=== PATIENT | female | born 1965 | race Caucasian/White ===

== ENCOUNTER 2018-02-18 20:37 | Emergency (ER) | payer BC ==
[~2018-02-18] VITALS: Ht 170.2 cm; Wt 107.6 kg
[~2018-02-18 20:37] MED LIST: LEVO137T2 PO; METO25TA3 PO
[2018-02-18] MEDS ORDERED: IOHEXOL 350 MG/ML 10 ML VIAL (for RAD DIAG) IVCONTRAST ONE (20:38)
[2018-02-18 20:55] VITALS: BP 154/82; PULSE 80; RESP 18; TEMP 97.7; O2SAT 97
[2018-02-18] MEDS ORDERED: METR-1 PO (21:07)
[2018-02-18] MEDS ORDERED: CIPR-9 PO (21:07)
[2018-02-18] MEDS ORDERED: SODIUM CHLOR 0.9% 1000 ML INJ 1,000 ML IV SCH (21:08)
[2018-02-18] MEDS ORDERED: diphenhydrAMINE HCL 50 MG/ML VIAL IV PUSH ONE (21:15)
[2018-02-18] MEDS ORDERED: SODIUM CHLORIDE 0.9% FLUSH 10 ML FLUSH IV FLUSH PRN (21:15)
[2018-02-18] MEDS ORDERED: PROCHLORPERAZINE INJ 10 MG/2 ML VIAL IV PUSH ONE (21:15)
[2018-02-18] MEDS ORDERED: MORPHINE SULFATE 4 MG/ML INJ IV PUSH ONE (21:15)
[2018-02-18 21:45] LABS: AUTOMATED NEUTROPHIL # 4.4 TH/MM3 (1.8-7.7); BASOPHIL # 0.1 TH/MM3 (0-0.2); BASOPHIL % 1.2 % (0.0-2.0); EOSINOPHIL % 0.5 % (0.0-4.0); HEMATOCRIT 41.3 % (35.0-46.0); HEMOGLOBIN 13.9 GM/DL (11.6-15.3); LYMPH % 20.9 % (9.0-44.0); LYMPHOCYTE # 1.3 TH/MM3 (1.0-4.8); MEAN CELL VOLUME 90.5 FL (80.0-100.0); MEAN CORPUSCULAR HEMOGLOBIN 30.4 PG (27.0-34.0); MEAN CORPUSCULAR HGB CONC 33.5 % (32.0-36.0); MEAN PLATELET VOLUME 7.3 FL (7.0-11.0); MONO % 8.8 % (0.0-8.0); MONOCYTE # 0.6 TH/MM3 (0-0.9); NEUT % 68.6 % (16.0-70.0); PLATELET COUNT 358 TH/MM3 (150-450); RED BLOOD COUNT 4.57 MIL/MM3 (4.00-5.30); RED CELL DISTRIBUTION WIDTH 12.9 % (11.6-17.2); WHITE BLOOD COUNT 6.4 TH/MM3 (4.0-11.0)
[2018-02-18 21:50] VITALS: BP 164/90; PULSE 88; RESP 15; O2SAT 97
[2018-02-18 21:51] LABS: CHLORIDE 102 MEQ/L (98-107); SODIUM (NA) 137 MEQ/L (136-145)
[2018-02-18 21:55] LABS: ALBUMIN 3.9 GM/DL (3.4-5.0); BICARBONATE 28.1 MEQ/L (21.0-32.0); BLOOD UREA NITROGEN 8 MG/DL (7-18); GLUCOSE,RANDOM 111 MG/DL (74-106)
--- NOTE | 2018-02-18 21:56 | PD ---
HPI . Abdominal pain Chief Complaint: Abdominal Pain Time Seen by Provider: 21:07 Travel History International Travel<30 days: No Contact w/Intl Traveler<30days: No Traveled to known affect area: No History of Present Illness HPI Patient presents with a chief complaint of abdominal pain. Onset was approximately 5 days ago. It started in the left lower quadrant and has moved to the epigastrium. She describes the pain as nausea. It is rated 10/10. She has not noted any exacerbating or relieving factors. She also reports a poor appetite and headache. She states that she started a clear liquid and bland diet at the onset of her symptoms. However, the symptoms persisted. She subsequently contacted her primary care provider yesterday who started her on Cipro and Flagyl for presumed diverticulitis. She states that her nausea has gotten worse with the antibiotics. She denies fever. PFSH Past Medical History Diminished Hearing: No Hypertension: Yes Thyroid Disease: Yes Tetanus Vaccination: Unknown Influenza Vaccination: No ?: Not Menopausal: Yes : 3 Para: 3 Past Surgical History Cholecystectomy: Yes Social History Alcohol Use: Yes (occas) Tobacco Use: No Substance Use: No Allergies-Medications (Allergen,Severity, Reaction): Coded Allergies: No Known Allergies (Verified Allergy, Unknown, 02/18/18) Reported Meds & Prescriptions Reported Meds & Active Scripts Active Metoprolol Tartrate 25 Mg Tab 25 Mg PO BID Levothyroxine (Levothyroxine Sodium) 137 Mcg Tab 137 Mcg PO DAILY Reported Flagyl (Metronidazole) 500 Mg Tab 500 Mg PO BID Cipro (Ciprofloxacin HCl) 500 Mg Tab 500 Mg PO BID Review of Systems Except as stated in HPI: all other systems reviewed are Neg General / Constitutional: No: Fever, Chills Gastrointestinal: Positive: Nausea, Abdominal Pain, Loss of Appetite, No: Vomiting, Diarrhea Genitourinary: No: Urgency, Frequency, Dysuria Physical Exam Narrative GENERAL: Awake and alert. SKIN: warm/dry. HEAD: Normocephalic. Atraumatic. EYES: Pupils equal and round. Extraocular movements are intact. ENT: Mucous membranes pink and moist. NECK: Supple. Full range of motion without pain.. CARDIOVASCULAR: Regular rate and rhythm. Heart sounds normal. RESPIRATORY: No accessory muscle use. Clear to auscultation. Breath sounds equal bilaterally. GASTROINTESTINAL: Abdomen soft. Mild upper abdominal tenderness. Bowel sounds diminished. Nondistended. MUSCULOSKELETAL: No obvious deformities. Normal muscle tone. NEUROLOGICAL: Awake and alert. No obvious cranial nerve deficits. Motor grossly within normal limits. Normal speech. PSYCHIATRIC: Appropriate mood and affect; insight and judgment normal. Data Data Last Documented VS Vital Signs Date Time Temp Pulse Resp B/P (MAP) Pulse Ox O2 Delivery O2 Flow Rate FiO2 02/18/18 22:53 74 15 126/78 (94) 96 Room Air 02/18/18 20:55 97.7 Orders Orders Complete Blood Count With Diff (02/18/18 21:08) Comprehensive Metabolic Panel (02/18/18 21:08) Lipase (02/18/18 21:08) Urinalysis - C+S If Indicated (02/18/18 21:08) Ct Abd/Pel W Iv Contrast(Rout) (02/18/18 21:08) Iv Access Insert/Monitor (02/18/18 21:08) Morphine Inj (Morphine Inj) (02/18/18 21:15) Sodium Chlor 0.9% 1000 Ml Inj (Ns 1000 M (02/18/18 21:08) Sodium Chloride 0.9% Flush (Ns Flush) (02/18/18 21:15) Diphenhydramine Inj (Benadryl Inj) (02/18/18 21:15) Prochlorperazine Inj (Compazine Inj) (02/18/18 21:15) Ed Urine Pregnancytest Poc (02/18/18 21:08) Iohexol 350 Inj (Omnipaque 350 Inj) (02/18/18 20:38) Labs Laboratory Tests Test 02/18/18 21:41 02/18/18 23:13 White Blood Count 6.4 TH/MM3 Red Blood Count 4.57 MIL/MM3 Hemoglobin 13.9 GM/DL Hematocrit 41.3 % Mean Corpuscular Volume 90.5 FL Mean Corpuscular Hemoglobin 30.4 PG Mean Corpuscular Hemoglobin Concent 33.5 % Red Cell Distribution Width 12.9 % Platelet Count 358 TH/MM3 Mean Platelet Volume 7.3 FL Neutrophils (%) (Auto) 68.6 % Lymphocytes (%) (Auto) 20.9 % Monocytes (%) (Auto) 8.8 % Eosinophils (%) (Auto) 0.5 % Basophils (%) (Auto) 1.2 % Neutrophils # (Auto) 4.4 TH/MM3 Lymphocytes # (Auto) 1.3 TH/MM3 Monocytes # (Auto) 0.6 TH/MM3 Eosinophils # (Auto) 0.0 TH/MM3 Basophils # (Auto) 0.1 TH/MM3 CBC Comment DIFF FINAL Differential Comment Blood Urea Nitrogen 8 MG/DL Creatinine 0.81 MG/DL Random Glucose 111 MG/DL Total Protein 7.6 GM/DL Albumin 3.9 GM/DL Calcium Level 9.0 MG/DL Alkaline Phosphatase 73 U/L Aspartate Amino Transf (AST/SGOT) 28 U/L Alanine Aminotransferase (ALT/SGPT) 31 U/L Total Bilirubin 0.4 MG/DL Sodium Level 137 MEQ/L Potassium Level 3.9 MEQ/L Chloride Level 102 MEQ/L Carbon Dioxide Level 28.1 MEQ/L Anion Gap 7 MEQ/L Estimat Glomerular Filtration Rate 74 ML/MIN Lipase 81 U/L Urine Color YELLOW Urine Turbidity CLEAR Urine pH 6.5 Urine Specific [place] LESS/EQUAL 1.005 Urine Protein NEG mg/dL Urine Glucose (UA) NEG mg/dL Urine Ketones NEG mg/dL Urine Occult Blood NEG Urine Nitrite NEG Urine Bilirubin NEG Urine Urobilinogen 0.2 MG/DL Urine Leukocyte Esterase TRACE Urine RBC 0-2 /hpf Urine WBC 3-5 /hpf Urine Squamous Epithelial Cells 0-5 /hpf Urine Bacteria NONE /hpf Microscopic Urinalysis Comment CULT NOT INDICATED MDM Medical Decision Making Medical Screen Exam Complete: Yes Emergency Medical Condition: Yes Differential Diagnosis Differential diagnosis of abdominal pain includes but is not limited to gastritis, pancreatitis, hepatitis, gastroenteritis, constipation, urinary retention, peptic ulcer disease, diverticulitis or appendicitis Narrative Course This patient presents with a chief complaint of abdominal pain. She has had it for about 5 days now. It started in the left lower quadrant but has moved to the epigastrium. She has been on antibiotics for presumed diverticulitis for 24 hours. The antibiotics have caused increased nausea. Abdominal pain workup is in process including CT of the abdomen and pelvis. In the meantime, she will be treated with IV fluids, IV Compazine, IV Benadryl and IV morphine. CBC & BMP Diagram 02/18/18 21:41 Total Protein 7.6, Albumin 3.9, Calcium Level 9.0, Alkaline Phosphatase 73, Aspartate Amino Transf (AST/SGOT) 28, Alanine Aminotransferase (ALT/SGPT) 31, Total Bilirubin 0.4, Lipase 81 UA is negative. Last Impressions Abdomen/Pelvis CT 02/18/182107 Signed Impressions: CONCLUSION: 1. No acute findings. Colonic diverticula without evidence for diverticulitis. No obstruction, free fluid or free air. Small hiatal hernia. Previous cholecys tectomy. I have not found an etiology for this patient's abdominal pain. Diagnosis Primary Impression: Abdominal pain, left lower quadrant Patient Instructions: Abdominal Pain (ED), General Instructions, Narcotic given in the ED Med/Other Pt SpecificInfo: Prescription(s) given Scripts Dicyclomine (Bentyl) 10 Mg Cap 10 MG PO QID for Bowel Management, #15 CAP 0 Refills Prov: Nano Cardozo MD 02/18/18 Ondansetron (Zofran) 4 Mg Tab 4 MG PO Q6HR Y for NAUSEA OR VOMITING, #12 TAB 0 Refills Prov: Nano Cardozo MD 02/18/18 Disposition: 01 DISCHARGE HOME Condition: Stable Nano Cardozo MD Feb 18, 2018 21:56
[2018-02-18 21:58] LABS: ALT (GPT) 31 U/L (10-53); AST (GOT) 28 U/L (15-37); CREATININE 0.81 MG/DL (0.50-1.00); GLOMERULAR FILTRATION RATE 74 ML/MIN (>89)
[2018-02-18 22:00] LABS: TOTAL BILIRUBIN ADULT 0.4 MG/DL (0.2-1.0); TOTAL PROTEIN 7.6 GM/DL (6.4-8.2)
[2018-02-18 22:01] LABS: ALKALINE PHOSPHATASE 73 U/L (45-117)
[2018-02-18 22:53] VITALS: BP 126/78; PULSE 74; RESP 15; O2SAT 96
--- NOTE | 2018-02-18 22:54 | RADRPT ---
EXAM DATE: 02/18/2018 10:46 PM EDT AGE/SEX: 52 years / Female INDICATIONS: Diffuse abdominal pain for 5 days. CLINICAL DATA: This is the patient's initial encounter. Patient reports that signs and symptoms have been present for 4 - 6 days and indicates a pain score of 10/10. MEDICAL/SURGICAL HISTORY: Hypertension. Thyroid disease. Cholecystectomy. ORAL CONTRAST: No oral contrast ingested. RADIATION DOSE: 19.22 CTDI (mGy) COMPARISON: No prior exams available for comparison. TECHNIQUE: Multiple contiguous axial images were obtained through the abdomen and pelvis following b olus infusion of 90 ml Omnipaque 350 (iohexol) nonionic water-soluble contrast as a single exam dos e. No oral contrast ingested. Using automated exposure control and adjustment of the mA and/or kV ac cording to patient size, radiation dose was kept as low as reasonably achievable to obtain optimal di agnostic quality images. DICOM format image data is available electronically for review and comparis on. FINDINGS: Lung bases are clear. No acute findings in the liver, spleen, adrenals, kidneys or pancreas. Previous cholecystectomy. No pelvic masses or free fluid. There is colonic diverticulosis without evidence for diverticulitis. Small hiatal hernia. CONCLUSION: 1. No acute findings. Colonic diverticula without evidence for diverticulitis. No obstruction, free fluid or free air. Small hiatal hernia. Previous cholecystectomy. Electronically signed by: Joce Ladd MD 02/18/2018 10:53 PM EDT
[2018-02-18 23:16] LABS: BILIRUBIN, URINE NEG (NEG); BLOOD, URINE NEG (NEG); GLUCOSE,URINE NEG (NEG); KETONE, URINE NEG (NEG); NITRITE,URINE NEG (NEG); PH, URINE 6.5 (5.0-8.5); URINE COLOR YELLOW (YELLW/STRAW); URINE LEUKOCYTE ESTERASE TRACE (NEG)
[2018-02-18 23:20] LABS: RBC, URINE 0-2 /hpf (0-3); SQUAMOUS EPITHELIAL CELL URINE 0-5 /hpf (0-5)
[2018-02-18] MEDS ORDERED: DICY10 PO (23:39)
[2018-02-18] MEDS ORDERED: ZOFR4TAB PO (23:39)
[2018-02-18 23:52] VITALS: BP 130/78
== END 2018-02-18 23:59 | disposition home or self-care (01) ==
LOC: PHED 20:37
DX: R10.32 Left lower quadrant pain (principal); R11.0 Nausea; R51 Headache; I10 Essential (primary) hypertension
CPT/HCPCS: 74177; 80053; 81001; 83690; 85025; 96361; 96374; 96375; 99284; J0780; J1200; J2270; J7030; Q9967